=== PATIENT | female | born 1970 | race Caucasian/White ===

== ENCOUNTER 2023-07-25 09:48 | Outpatient (OUT) | payer OTHER, SELFPAY ==
[2023-07-25 18:53] LABS: C. Difficile PCR NEGATIVE (NEGATIVE)
== END 2023-07-25 09:49 | disposition home or self-care (01) ==
LOC: LAB 07-28 09:48
PROVIDERS: PCP Physician Assistant; Visit Provider Physician Assistant
DX: R19.7 Diarrhea, unspecified (principal)
CPT/HCPCS: 87045; 87046; 87427; 87493